=== PATIENT | male | born 1985 | race Caucasian/White ===

== ENCOUNTER 2019-02-17 05:29 | Emergency (ER) | payer OTHER ==
[~2019-02-17] VITALS: Ht 193 cm; Wt 93.0 kg
[~2019-02-17 05:29] MED LIST: NOHOMEMEDICATIONS
[2019-02-17 05:55] LABS: ABSOLUTE BASOPHILS 0.1 thou/uL (0.0-0.2); ABSOLUTE EOSINOPHILS 0.3 thou/uL (0.0-0.7); ABSOLUTE LYMPHOCYTES 3.8 thou/uL (0.8-5.3); ABSOLUTE MONOCYTES 0.5 thou/uL (0.0-1.2); ABSOLUTE NEUTROPHILS 3.9 thou/uL (1.6-8.1); BASOPHILS 0.7 %; EOSINOPHILS 3.2 %; HEMATOCRIT 43.3 % (42.0-52.0); HEMOGLOBIN 14.5 gm/dL (14.0-18.0); LYMPHOCYTES 44.4 %; MCH 28.6 pg (26.0-34.0); MCHC 33.4 g/dL (28.0-37.0); MCV 85.6 fL (80.0-100.0); MONOCYTES 6.2 %; MPV 7.9 fl. (7.2-11.1); NUCLEATED RBCS 0 /100WBC; PLATELET COUNT* 312 thou/uL (150-400); POLYS 45.5 %; RBC 5.06 mil/uL (4.50-6.00); RDW-CV 14.5 % (10.5-14.5); WBC 8.6 thou/uL (4.0-11.0)
[2019-02-17 06:02] LABS: CALCIUM 9.3 mg/dL (8.5-10.1); CREATININE 1.3 mg/dL (0.6-1.3); POTASSIUM 3.6 mmol/L (3.5-5.1)
[2019-02-17] MEDS ORDERED: ZOFRAN ODT4 MG PO (06:50)
[2019-02-17] MEDS ORDERED: HYDROCODON-ACE1 EAC8 PO (06:50)
[2019-02-17] MEDS ORDERED: FLOMAX0.4 MG PO (07:27)
[2019-02-17] MEDS ORDERED: IBUPROFEN 800800 M1 PO (07:27)
[2019-02-17 07:50] VITALS: BP 134/63
== END 2019-02-17 07:53 | disposition home or self-care (01) ==
LOC: M.ERS 05:29
PROVIDERS: Emergency Medicine
DX: N20.1 Calculus of ureter (principal)